=== PATIENT | male | born 1945 | race Caucasian/White ===

== ENCOUNTER 2024-07-07 20:13 | Inpatient (IN) | payer MEDICARE, MEDICAID ==
[~2024-07-07] VITALS: Ht 182.9 cm; Wt 70.9 kg
[2024-07-07 22:49] LABS: COVID AG,FIA SOURCE NASAL SWAB
[2024-07-07 23:12] LABS: SARS-COV2 (COVID) ANTIGEN,FIA Negative (Negative)
[2024-07-07 23:17] LABS: BASOPHILS % (AUTO) 0.5 % (0.0-2.0); EOSINOPHILS % (AUTO) 2.2 % (1.0-6.0); HEMOGLOBIN 14.5 g/dL (13.5-17.5); LYMPHOCYTES # (AUTO) 1.7 K/uL (1.0-4.8); LYMPHOCYTES % (AUTO) 17.5 % (22.0-44.0); MEAN CORPUSCULAR HEMOGLOBIN 29.9 pg (26.0-34.0); MEAN CORPUSCULAR HGB CONC 33.6 G/dL (31.0-37.0); MEAN CORPUSCULAR VOLUME 89 fL (80-100); MONOCYTES # (AUTO) 0.8 K/uL (0.1-1.0); NEUTROPHILS # (AUTO) 6.7 K/uL (1.8-7.7); NEUTROPHILS % (AUTO) 70.8 % (40.0-70.0); PLATELET COUNT (AUTO) 219 K/uL (150-450); RED BLOOD CELL COUNT(AUTO) 4.83 MIL/uL (4.50-5.90); RED CELL DISTRIBUTION WIDTH 14.6 % (11.5-14.5); WHITE BLOOD COUNT (AUTO) 9.4 K/uL (4.5-11.0)
[2024-07-07 23:21] LABS: ANION GAP 10 mmol/L (8-16); CALCIUM, TOTAL 8.3 mg/dL (8.8-10.5); CARBON DIOXIDE 28 mmol/L (22-29); CHLORIDE 102 mmol/L (98-107); CREATININE 1.19 mg/dL (0.60-1.30); GLOMERULAR FILTR. RATE CALC 59 mL/min (>60); GLUCOSE,RANDOM 115 mg/dL (70-110); POTASSIUM 3.8 mmol/L (3.5-5.1); SODIUM SERUM 140 mmol/L (136-145); UREA NITROGEN, BLOOD 24 mg/dL (7-18)
[2024-07-07 23:27] LABS: ALCOHOL, BLOOD (SERUM) < 3 mg/dL (0-10)
[2024-07-07] MEDS ORDERED: HALOPERIDOL 5 MG TABLET PO PRN (23:45)
[2024-07-07] MEDS ORDERED: ZOLPIDEM TARTRATE 10 MG TABLET PO PRN (23:45)
[2024-07-07] MEDS ORDERED: LORazepam 2 MG TABLET PO PRN (23:45)
[2024-07-08 10:21] VITALS: O2SAT 96
[2024-07-08 11:30] VITALS: BP 119/56; PULSE 63; RESP 18; TEMP 98.8; O2SAT 97
[2024-07-08 20:43] VITALS: BP 128/68; PULSE 64; RESP 18; TEMP 97.6; O2SAT 96
[2024-07-09 08:27] VITALS: BP 114/60; PULSE 60; RESP 18; TEMP 98.1; O2SAT 96
[2024-07-09] MEDS ORDERED: SERT-438 PO (12:54)
[2024-07-09] MEDS ORDERED: RISP0.5T39 PO (12:54)
[2024-07-09] MEDS: SERTRALINE HCL 50 MG TABLET PO SCH (13:31)
[2024-07-09] MEDS: RisperiDONE 0.5 MG TABLET PO SCH (21:09)
[2024-07-09 21:26] VITALS: BP 109/57; PULSE 65; RESP 20; TEMP 98.6; O2SAT 97
[2024-07-10] MEDS: ATORVASTATIN CALCIUM 20 MG TABLET PO SCH (08:47)
[2024-07-10] MEDS: RIVAROXABAN 10 MG TABLET PO SCH (08:47)
[2024-07-10 11:28] VITALS: BP 118/58; PULSE 68; RESP 17; TEMP 97.1; O2SAT 97
[2024-07-10 21:08] VITALS: BP 112/68; PULSE 62; RESP 18; TEMP 98.9; O2SAT 96
[2024-07-11 09:00] VITALS: BP 109/66; PULSE 74; RESP 17; TEMP 98.7; O2SAT 98
[2024-07-11 21:57] VITALS: BP 116/56; PULSE 78; RESP 18; TEMP 98.1; O2SAT 96
[2024-07-12 08:54] VITALS: BP 117/56; PULSE 98; RESP 18; TEMP 98.2; O2SAT 98
[2024-07-12 20:14] VITALS: BP 110/50; PULSE 62; RESP 18; TEMP 97.4; O2SAT 94
[2024-07-13 09:47] VITALS: BP 93/58; PULSE 71; RESP 16; TEMP 97.6; O2SAT 96
[2024-07-13] MEDS ORDERED: RIVA10TA PO (16:57)
[2024-07-13] MEDS ORDERED: ATOR20TA PO (16:57)
[2024-07-13 21:46] VITALS: BP 110/52; PULSE 71; RESP 18; TEMP 98.3; O2SAT 98
[2024-07-14 09:08] VITALS: BP 107/58; PULSE 67; RESP 18; TEMP 97.8; O2SAT 95
== END 2024-07-14 20:30 | DRG 885 ==
LOC: EMS 20:13 → B2X 07-08 08:54 → 3EX 07-09 13:38
PROVIDERS: ADMIT Psychiatry & Neurology Child & Adolescent Psychiatry; ATTEND Psychiatry & Neurology Child & Adolescent Psychiatry
PROC: GZ52ZZZ Individual Psychotherapy, Cognitive (ICD-10-PCS; principal; 2024-07-09)
PROC: GZHZZZZ Group Psychotherapy (ICD-10-PCS; 2024-07-09)
DX: F25.1 Schizoaffective disorder, depressive type (principal); E44.0 Moderate protein-calorie malnutrition; F02.818 Dementia in other diseases classified elsewhere, unspecified severity, with other behavioral disturbance; E78.5 Hyperlipidemia, unspecified; Z20.822 Contact with and (suspected) exposure to COVID-19; G30.9 Alzheimer's disease, unspecified; G47.00 Insomnia, unspecified; I48.0 Paroxysmal atrial fibrillation; I51.9 Heart disease, unspecified; Z79.899 Other long term (current) drug therapy; Z79.01 Long term (current) use of anticoagulants; Z85.820 Personal history of malignant melanoma of skin; Z68.21 Body mass index [BMI] 21.0-21.9, adult
CPT/HCPCS: 80048; 83036; 85025; 87081; 97161; 97530; 99285; G0378; G0480